=== PATIENT | female | born 1995 | race Two or more races ===

== ENCOUNTER 2024-10-05 11:32 | Emergency (ER) | payer MEDICAID, OTHER ==
[~2024-10-05] VITALS: Ht 170.2 cm; Wt 55.8 kg
[2024-10-05] MEDS ORDERED: METOCLOPRAMIDE HCL 10 MG/2 ML VIAL IV ONE (12:30)
[2024-10-05] MEDS ORDERED: PANTOPRAZOLE 40 MG VIAL IV ONE (12:30)
[2024-10-05] MEDS ORDERED: FAMOTIDINE/PF INJ 20 MG/2 ML VIAL IV ONE (12:30)
[2024-10-05] MEDS ORDERED: KETOROLAC TROMETHAMINE 15 MG/ML VIAL ONE (12:33)
[2024-10-05] MEDS: KETOROLAC TROMETHAMINE 15 MG/ML VIAL IV ONE (12:40)
[2024-10-05 12:48] LABS: BASOPHILS % (AUTO) 0.5 % (0.0-2.0); EOSINOPHILS % (AUTO) 0.2 % (0.0-6.0); HEMATOCRIT 39 % (33-45); HEMOGLOBIN 12.9 g/dL (11.5-14.8); LYMPHOCYTES # (AUTO) 1.2 K/uL (0.8-4.8); LYMPHOCYTES % (AUTO) 26.3 % (20.0-44.0); MEAN CORPUSCULAR HEMOGLOBIN 30 PG (26.0-33.0); MEAN CORPUSCULAR HGB CONC 33 g/dl (31.0-36.0); MEAN CORPUSCULAR VOLUME 89 fL (82-100); MONOCYTES # (AUTO) 0.3 K/uL (0.1-1.30); NEUTROPHILS # (AUTO) 3.1 K/uL (1.8-8.9); PLATELET COUNT (AUTO) 118 K/uL (150-450); RED BLOOD CELL COUNT(AUTO) 4.32 MIL/uL (4.0-5.2); RED CELL DISTRIBUTION WIDTH 14.1 % (11.5-15.0); WHITE BLOOD COUNT (AUTO) 4.6 K/uL (4.3-11.0)
[2024-10-05] MEDS ORDERED: IV NS 0.9% 250 ML IV ONE (13:02)
[2024-10-05] MEDS ORDERED: IOHEXOL-300 100 ML VIAL IV ONE (13:02)
[2024-10-05] MEDS ORDERED: CT SWABBABLE VALVE TRANS SET 1 EA INFUS.SET MC ONE (13:02)
[2024-10-05 13:06] LABS: CALCIUM, SERUM 8.8 mg/dL (8.5-10.1); CREATININE 0.7 mg/dL (0.6-1.3); POTASSIUM 3.8 mmol/L (3.5-5.1)
[2024-10-05 13:12] LABS: BILIRUBIN,DIRECT 0.1 mg/dL (0.0-0.2); BILIRUBIN,TOTAL 0.3 mg/dL (0.2-1.0); TOTAL PROTEIN, SERUM 7.8 g/dL (6.4-8.2)
[2024-10-05 13:47] LABS: APPEARANCE,URINE SLIGHTLY CLOUDY (CLEAR); BILIRUBIN,URINE NEGATIVE (NEGATIVE); BLOOD, URINE NEGATIVE Ery/uL (NEGATIVE); COLOR,URINE YELLOW (YELLOW); KETONES,URINE NEGATIVE (NEGATIVE); LEUKOCYTE ESTERASE ,URINE NEGATIVE (NEGATIVE); NITRITE, URINE POSITIVE (NEGATIVE); PH,URINE 6.5 (5.0-8.0); PROTEIN,URINE NEGATIVE (NEGATIVE); UGLUCOSE NEGATIVE (NEGATIVE); UROBILINOGEN,URINE 0.2 EU/dL (0.2)
[2024-10-05 14:08] LABS: RBC,URINE 0-2 /HPF (0-2)
[2024-10-05] MEDS ORDERED: NITR100C6 PO (14:08)
[2024-10-05 14:09] LABS: ADD URINE CULTURE YES; BACTERIA,URINE 2+ /HPF (None Seen)
[2024-10-05 14:19] VITALS: BP 115/75; TEMP 98.1; O2SAT 99
[2024-10-07 17:09] LABS: *THROMBIN TIME 20.3 sec (0.0-23.0); *dPT CONFIRM RATIO 1.14 Ratio (0.00-1.34); *dRVVT 41.9 sec (0.0-47.0)
== END 2024-10-05 14:17 | disposition home or self-care (01) ==
LOC: ER 11:40
DX: N39.0 Urinary tract infection, site not specified (principal); R10.30 Lower abdominal pain, unspecified; G89.29 Other chronic pain; Z88.0 Allergy status to penicillin
CPT/HCPCS: 99285; 74177; 96374; 85025; 80048; 87086; 83690; 80076; 81001; 36415; 83516; 85613; 85670; 85705; 85732; J1885; J7050; Q9967